=== PATIENT | female | born 1965 | race Asian ===

== ENCOUNTER 2016-09-10 15:02 | Outpatient (CLI) | payer BC | END 2016-09-10 23:59 | disposition home or self-care (01) | LOC: LAB 15:02 | PROVIDERS: ATTEND Family Medicine | DX: R10.9 Unspecified abdominal pain (principal) | CPT/HCPCS: 87086-TC ==

== ENCOUNTER 2016-11-24 08:50 | Outpatient (CLI) | payer BC | END 2016-11-24 23:59 | disposition home or self-care (01) | LOC: US 08:50 | PROVIDERS: ATTEND Family Medicine | DX: R30.0 Dysuria (principal) | CPT/HCPCS: 76770-TC ==

== ENCOUNTER 2017-05-03 09:05 | Outpatient (CLI) | payer BC | END 2017-05-03 23:59 | disposition home or self-care (01) | LOC: MERGE 09:05 → CARD 09:05 | PROVIDERS: ATTEND Family Medicine | DX: R42 Dizziness and giddiness (principal) | CPT/HCPCS: 93880-TC ==

== ENCOUNTER 2017-05-17 08:42 | Outpatient (CLI) | payer BC | END 2017-05-17 23:59 | disposition home or self-care (01) | LOC: LAB 08:42 → MERGE 08:42 → LAB 23:59 | PROVIDERS: ATTEND Family Medicine | DX: E89.41 Symptomatic postprocedural ovarian failure (principal) | CPT/HCPCS: 36415; 82670 ==

== ENCOUNTER 2018-09-09 08:50 | Outpatient (CLI) | payer BC ==
[2018-09-09] MEDS ORDERED: GADODIAMIDE 5 MMOL/10 ML VIAL IJ ONE (08:51)
[2018-09-09] MEDS ORDERED: GADODIAMIDE 2.5 MMOL/5 ML VIAL IJ ONE (08:51)
== END 2018-09-09 23:50 | disposition home or self-care (01) ==
LOC: MRI 08:50
PROVIDERS: ATTEND Family Medicine
DX: H93.13 Tinnitus, bilateral (principal)
CPT/HCPCS: 70542; 70553; A9579 ×2

== ENCOUNTER 2018-10-10 08:17 | Outpatient (CLI) | payer BC | END 2018-10-10 23:59 | disposition home or self-care (01) | LOC: MRI 08:17 | PROVIDERS: ATTEND Family Medicine | DX: S83.232A Complex tear of medial meniscus, current injury, left knee, initial encounter (principal); M25.462 Effusion, left knee; M22.42 Chondromalacia patellae, left knee; M71.22 Synovial cyst of popliteal space [Baker], left knee; M65.88 Other synovitis and tenosynovitis, other site; X58.XXXA Exposure to other specified factors, initial encounter; Y93.89 Activity, other specified; Y92.89 Other specified places as the place of occurrence of the external cause; Y99.8 Other external cause status | CPT/HCPCS: 73721-TC ==

== ENCOUNTER 2018-11-25 08:31 | Outpatient (CLI) | payer BC | END 2018-11-25 23:59 | disposition home or self-care (01) | LOC: MRI 08:31 | PROVIDERS: ATTEND Family Medicine | DX: M65.871 Other synovitis and tenosynovitis, right ankle and foot (principal); M77.32 Calcaneal spur, left foot; M77.31 Calcaneal spur, right foot; R60.0 Localized edema | CPT/HCPCS: 73721-TC ==

== ENCOUNTER 2018-12-09 11:05 | Outpatient (CLI) | payer BC | END 2018-12-09 23:59 | disposition home or self-care (01) | LOC: WOU 11:05 | PROVIDERS: ATTEND Podiatrist Foot & Ankle Surgery | DX: M72.2 Plantar fascial fibromatosis (principal); M25.571 Pain in right ankle and joints of right foot; S83.422D Sprain of lateral collateral ligament of left knee, subsequent encounter; X58.XXXD Exposure to other specified factors, subsequent encounter; R60.0 Localized edema; M25.771 Osteophyte, right ankle | CPT/HCPCS: G0463 ==

== ENCOUNTER 2020-01-19 10:16 | Outpatient (CLI) | payer BC ==
[2020-01-19 12:40] LABS: BASOPHILS # (AUTO) 0.1 /CMM (0.0-0.2); BASOPHILS % (AUTO) 1.2 % (0.0-2.0); EOSINOPHILS % (AUTO) 1.8 % (0.0-6.0); HEMATOCRIT 42 % (33-45); LYMPHOCYTES # (AUTO) 1.6 /CMM (0.8-4.8); LYMPHOCYTES % (AUTO) 28.7 % (20.0-44.0); MEAN CORPUSCULAR HGB CONC 33 g/dl (31.0-36.0); MEAN CORPUSCULAR VOLUME 91 fL (82-100); MONOCYTES # (AUTO) 0.2 /CMM (0.1-1.30); MONOCYTES % (AUTO) 3.4 % (2.0-12.0); NEUTROPHILS # (AUTO) 3.6 /CMM (1.8-8.9); NEUTROPHILS % (AUTO) 64.9 % (43.0-81.0); PLATELET COUNT (AUTO) 247 /CMM (150-450); RED BLOOD CELL COUNT(AUTO) 4.61 MIL/uL (4.0-5.2); WHITE BLOOD COUNT (AUTO) 5.5 K/uL (4.3-11.0)
[2020-01-19 12:43] LABS: THYROID STIMULATING HORMONE 0.806 uIU/mL (0.358-3.74); URIC ACID 3.8 mg/dL (2.6-7.2)
[2020-01-19 13:37] LABS: ALBUMIN 4.1 g/dL (3.4-5.0); BILIRUBIN,TOTAL 0.3 mg/dL (0.2-1.0); CALCIUM, SERUM 9.1 mg/dL (8.5-10.1); CREATININE 0.7 mg/dL (0.6-1.3); MAGNESIUM 2.2 mg/dL (1.8-2.4); POTASSIUM 3.4 mmol/L (3.5-5.1); TOTAL PROTEIN, SERUM 7.6 g/dL (6.4-8.2)
[2020-01-19 13:58] LABS: APPEARANCE,URINE CLEAR (CLEAR); BILIRUBIN,URINE NEGATIVE (NEGATIVE); BLOOD, URINE TRACE-INTA Ery/uL (NEGATIVE); COLOR,URINE YELLOW (YELLOW); KETONES,URINE NEGATIVE (NEGATIVE); LEUKOCYTE ESTERASE ,URINE TRACE (NEGATIVE); NITRITE, URINE NEGATIVE (NEGATIVE); PROTEIN,URINE NEGATIVE (NEGATIVE); UGLUCOSE NEGATIVE (NEGATIVE); UROBILINOGEN,URINE 0.2 EU/dL (0.2)
[2020-01-19 14:41] LABS: BACTERIA,URINE 1+ /HPF (None Seen); URIC ACID CRYSTALS,URINE RARE /HPF (None Seen)
== END 2020-01-19 23:59 | disposition home or self-care (01) ==
LOC: LAB 10:16
PROVIDERS: ATTEND Family Medicine
DX: R06.2 Wheezing (principal); I10 Essential (primary) hypertension; Z79.899 Other long term (current) drug therapy; Z00.01 Encounter for general adult medical examination with abnormal findings
CPT/HCPCS: 36415; 80053-TC; 80061-TC; 81000-TC; 82306; 83735-TC; 84439-TC; 84443-TC; 84550-TC; 85025-TC

== ENCOUNTER 2021-01-21 10:47 | Outpatient (CLI) | payer BC ==
[2021-01-21 11:48] LABS: BASOPHILS % (AUTO) 0.6 % (0.0-2.0); EOSINOPHILS % (AUTO) 2.9 % (0.0-6.0); HEMATOCRIT 38 % (33-45); HEMOGLOBIN 12.8 g/dL (11.5-14.8); LYMPHOCYTES # (AUTO) 1.3 K/uL (0.8-4.8); MEAN CORPUSCULAR HGB CONC 34 g/dl (31.0-36.0); MEAN CORPUSCULAR VOLUME 91 fL (82-100); MONOCYTES # (AUTO) 0.2 K/uL (0.1-1.30); MONOCYTES % (AUTO) 4.5 % (2.0-12.0); NEUTROPHILS # (AUTO) 3.3 K/uL (1.8-8.9); PLATELET COUNT (AUTO) 229 K/uL (150-450); RED BLOOD CELL COUNT(AUTO) 4.16 MIL/uL (4.0-5.2); WHITE BLOOD COUNT (AUTO) 5.1 K/uL (4.3-11.0)
[2021-01-21 12:23] LABS: BILIRUBIN,URINE NEGATIVE (NEGATIVE); COLOR,URINE YELLOW (YELLOW); LEUKOCYTE ESTERASE ,URINE SMALL (NEGATIVE); NITRITE, URINE NEGATIVE (NEGATIVE); PH,URINE 7.5 (5.0-8.0); PROTEIN,URINE NEGATIVE (NEGATIVE); UGLUCOSE NEGATIVE (NEGATIVE); UROBILINOGEN,URINE 0.2 EU/dL (0.2)
[2021-01-21 12:39] LABS: RBC,URINE 0-2 /HPF (0-2)
[2021-01-21 12:40] LABS: BACTERIA,URINE Moderate /HPF (None Seen); SQUAMOUS EPITHELIAL CELL,UR Moderate /HPF (None Seen)
[2021-01-21 13:23] LABS: FREE T4 (FREE THYROXINE) 0.98 ng/dL (0.76-1.46); THYROID STIMULATING HORMONE 0.922 uIU/mL (0.358-3.74)
[2021-01-21 13:25] LABS: ALBUMIN 3.7 g/dL (3.4-5.0); BILIRUBIN,TOTAL 0.3 mg/dL (0.2-1.0); CALCIUM, SERUM 8.5 mg/dL (8.5-10.1); CREATININE 0.7 mg/dL (0.6-1.3); POTASSIUM 3.7 mmol/L (3.5-5.1); TOTAL PROTEIN, SERUM 7.1 g/dL (6.4-8.2)
== END 2021-01-21 23:59 | disposition home or self-care (01) ==
LOC: RAD 10:47
PROVIDERS: ATTEND Family Medicine
DX: M79.644 Pain in right finger(s) (principal)
CPT/HCPCS: 36415; 73140-TC; 80053-TC; 80061-TC; 81001; 82306; 84439-TC; 84443-TC; 85025-TC; 87086-TC

== ENCOUNTER 2021-02-27 08:48 | Outpatient (CLI) | payer BC | END 2021-02-27 23:59 | disposition home or self-care (01) | LOC: RAD 08:48 | PROVIDERS: ATTEND Family Medicine | DX: M77.32 Calcaneal spur, left foot (principal); M79.89 Other specified soft tissue disorders | CPT/HCPCS: 73610-TC ==

== ENCOUNTER 2021-03-05 14:00 | Outpatient (CLI) | payer BC | END 2021-03-05 23:59 | disposition home or self-care (01) | LOC: WOU 14:00 | PROVIDERS: ATTEND Podiatrist Foot & Ankle Surgery | DX: M72.2 Plantar fascial fibromatosis (principal); M79.672 Pain in left foot; M79.671 Pain in right foot | CPT/HCPCS: A6253; G0463 ==

== ENCOUNTER 2021-11-26 08:30 | Outpatient (CLI) | payer BC | END 2021-11-26 23:59 | disposition home or self-care (01) | LOC: LAB 08:30 | PROVIDERS: ATTEND Family Medicine | DX: Z01.818 Encounter for other preprocedural examination (principal); N39.0 Urinary tract infection, site not specified | CPT/HCPCS: 71046; 87086-TC ==

== ENCOUNTER 2021-12-12 11:20 | Outpatient (CLI) | payer BC ==
[2021-12-12 12:29] LABS: BASOPHILS % (AUTO) 0.5 % (0.0-2.0); EOSINOPHILS % (AUTO) 4.4 % (0.0-6.0); HEMATOCRIT 38 % (33-45); HEMOGLOBIN 13.1 g/dL (11.5-14.8); LYMPHOCYTES # (AUTO) 1.9 K/uL (0.8-4.8); LYMPHOCYTES % (AUTO) 28.5 % (20.0-44.0); MEAN CORPUSCULAR HGB CONC 34 g/dl (31.0-36.0); MEAN CORPUSCULAR VOLUME 89 fL (82-100); MONOCYTES # (AUTO) 0.4 K/uL (0.1-1.30); MONOCYTES % (AUTO) 5.8 % (2.0-12.0); NEUTROPHILS # (AUTO) 4.1 K/uL (1.8-8.9); NEUTROPHILS % (AUTO) 60.8 % (43.0-81.0); PLATELET COUNT (AUTO) 333 K/uL (150-450); RED BLOOD CELL COUNT(AUTO) 4.32 MIL/uL (4.0-5.2); WHITE BLOOD COUNT (AUTO) 6.8 K/uL (4.3-11.0)
[2021-12-12 13:05] LABS: ALBUMIN 3.8 g/dL (3.4-5.0); BILIRUBIN,TOTAL 0.3 mg/dL (0.2-1.0); CALCIUM, SERUM 8.7 mg/dL (8.5-10.1); CREATININE 0.8 mg/dL (0.6-1.3); POTASSIUM 3.8 mmol/L (3.5-5.1); TOTAL PROTEIN, SERUM 7.5 g/dL (6.4-8.2)
== END 2021-12-12 23:59 | disposition home or self-care (01) ==
LOC: LAB 11:20
PROVIDERS: ATTEND Internal Medicine Hematology & Oncology
DX: C50.011 Malignant neoplasm of nipple and areola, right female breast (principal); D64.9 Anemia, unspecified; Z13.228 Encounter for screening for other metabolic disorders
CPT/HCPCS: 36415; 80053-TC; 85025-TC; 86300

== ENCOUNTER 2021-12-15 10:57 | Outpatient (CLI) | payer BC ==
[2021-12-15] MEDS ORDERED: IOHEXOL-300 100 ML VIAL IV ONE (11:36)
[2021-12-15] MEDS ORDERED: CT SWABBABLE VALVE TRANS SET 1 EA INFUS.SET MC ONE (11:37)
[2021-12-15] MEDS ORDERED: IV NS 0.9% 250 ML IV ONE (11:38)
== END 2021-12-15 23:59 | disposition home or self-care (01) ==
LOC: CT 10:57
PROVIDERS: ATTEND Internal Medicine Hematology & Oncology
DX: K44.9 Diaphragmatic hernia without obstruction or gangrene (principal); M96.843 Postprocedural seroma of a musculoskeletal structure following other procedure; Z90.11 Acquired absence of right breast and nipple
CPT/HCPCS: 71270; 74178; J7050; Q9967

== ENCOUNTER 2022-04-30 08:48 | Outpatient (CLI) | payer BC ==
[2022-04-30] MEDS ORDERED: IOHEXOL-300 100 ML VIAL IV ONE (09:07)
[2022-04-30] MEDS ORDERED: CT SWABBABLE VALVE TRANS SET 1 EA INFUS.SET MC ONE (09:07)
[2022-04-30] MEDS ORDERED: IV NS 0.9% 250 ML IV ONE (09:07)
== END 2022-04-30 23:59 | disposition home or self-care (01) ==
LOC: CT 08:48
PROVIDERS: ATTEND Internal Medicine Hematology & Oncology
DX: K44.9 Diaphragmatic hernia without obstruction or gangrene (principal); R16.1 Splenomegaly, not elsewhere classified; Z90.13 Acquired absence of bilateral breasts and nipples; C50.919 Malignant neoplasm of unspecified site of unspecified female breast; Z95.9 Presence of cardiac and vascular implant and graft, unspecified
CPT/HCPCS: 71260; 74177; J7050; Q9967

== ENCOUNTER 2022-11-02 12:53 | Outpatient (CLI) | payer BC ==
[2022-11-02] MEDS ORDERED: GADOTERATE MEGLUMINE 10 MMOL/20 ML VIAL IV ONE (12:54)
== END 2022-11-02 23:59 | disposition home or self-care (01) ==
LOC: MRI 12:53
PROVIDERS: ATTEND Radiology Radiation Oncology
DX: M47.812 Spondylosis without myelopathy or radiculopathy, cervical region (principal); M25.78 Osteophyte, vertebrae; G95.89 Other specified diseases of spinal cord; C50.811 Malignant neoplasm of overlapping sites of right female breast; G56.91 Unspecified mononeuropathy of right upper limb
CPT/HCPCS: 72156; A9575

== ENCOUNTER 2023-01-22 14:00 | Outpatient (CLI) | payer BC ==
[2023-01-22] MEDS ORDERED: IV NS 0.9% 250 ML IV ONE (14:25)
[2023-01-22] MEDS ORDERED: IOHEXOL-350 100 ML VIAL IV ONE (14:25)
[2023-01-22] MEDS ORDERED: CT SWABBABLE VALVE TRANS SET 1 EA INFUS.SET MC ONE (14:25)
== END 2023-01-22 23:59 | disposition home or self-care (01) ==
LOC: CT 14:00
PROVIDERS: ATTEND Family Medicine
DX: R06.02 Shortness of breath (principal)
CPT/HCPCS: J7050; Q9967